=== PATIENT | female | born 1970 | race Caucasian/White ===

== ENCOUNTER 2023-02-26 06:06 | Day surgery (SDC) | payer BC, OTHER ==
[2023-02-22 12:20] LABS: BASOPHILS % (AUTO) 0.4 % (0-1); EOSINOPHILS # (AUTO) 0.1 X10'3 (0-0.9); EOSINOPHILS % (AUTO) 1.8 % (0-6); LYMPHOCYTES # (AUTO) 1.2 X10'3 (1.1-4.8); LYMPHOCYTES % (AUTO) 20.2 % (21-51); MEAN CORPUSCULAR HEMOGLOBIN 31.4 PG (27.0-31.0); MEAN CORPUSCULAR HGB CONC 33.9 g/dL (33.0-36.5); MEAN CORPUSCULAR VOLUME 92.8 FL (78-98); MEAN PLATELET VOLUME 7.8 FL (7.4-10.4); MONOCYTES # (AUTO) 0.5 X10'3 (0-0.9); MONOCYTES % (AUTO) 8.3 % (2-12); NEUTROPHILS # (AUTO) 4.2 X10'3 (1.8-7.7); NEUTROPHILS % (AUTO) 69.3 % (42-75); PRE OP HEMATOCRIT 44.5 % (35.0-45.0); PRE OP HEMOGLOBIN 15.1 g/dL (12.0-16.0); PRE OP PLATELET COUNT 313 X10'3 (140-440); RED BLOOD COUNT 4.79 X10'6 (4.20-5.60); RED CELL DISTRIBUTION WIDTH 13.2 % (11.5-14.5)
[2023-02-22 12:51] LABS: HCG SERUM QL NEGATIVE
[2023-02-22 13:04] LABS: ALBUMIN 3.8 G/DL (3.4-5.0); ALBUMIN/GLOBULIN RATIO 0.9 (1.1-1.5); ALKALINE PHOSPHATASE 73 IU/L (46-116); BLOOD UREA NITROGEN 19 MG/DL (7-18); BUN/CREATININE RATIO 23.8 (10.0-20.0); CALCIUM 9.4 MG/DL (8.5-10.1); CHLORIDE 104 MMOL/L (99-107); PRE OP ALT 35 U/L (30-65); PRE OP ANION GAP 11 (8-16); PRE OP AST 24 U/L (10-37); PRE OP BILIRUB, TOTAL 1.2 MG/DL (0.0-1.0); PRE OP GLUCOSE 111 MG/DL (70-104); PRE OP POTASSIUM 3.9 MMOL/L (3.4-5.1); PRE OP SODIUM 141 MMOL/L (135-145); TOTAL CARBON DIOXIDE 26.5 MMOL/L (24-32); TOTAL PROTEIN 7.9 G/DL (6.4-8.2); eGFR 74 ML/MIN
[2023-02-26] VITALS (10 sets, daily range): BP systolic 128–152; BP diastolic 79–91; PULSE 58–75; RESP 14–16; TEMP 98.7; O2SAT 96–100
[~2023-02-26] VITALS: Ht 160 cm; Wt 89.4 kg
[~2023-02-26 06:06] MED LIST: ASCO250T48 PO; CETI10CA PO; MAGN400C PO; POTA-280 PO; SYN0.088T PO; WOMENS ONE A DAY; cefazolin 2gm/D5W 100mL 100 ML IV ONE; famotidine 20mg tablet PO ONE; ringers solution, lacted 1,000 ML IV SCH
[2023-02-26] MEDS ORDERED: BUPIVAcaine/PF 2.5mg/ml (0.25%) 10ml vial ONE (06:42)
[2023-02-26] MEDS ORDERED: LIDOcaine 1% (10mg/ml)w/preservative inj. 20ml MDV ONE (07:14)
[2023-02-26] MEDS ORDERED: midazolam 1 mg/ML 2ml injection ONE (07:55)
[2023-02-26] MEDS ORDERED: fentaNYL/PF 50MCG/1 ML 2ML syringe ONE (07:55)
[2023-02-26] MEDS ORDERED: propofol inj 20 ML IV ONE (07:55)
[2023-02-26] MEDS ORDERED: ondansetron/PF 4mg/2ml inj IV PRN (08:00)
[2023-02-26] MEDS ORDERED: meperidine/PF 25mg/ml syringe IV PRN ×3 (08:00)
[2023-02-26] MEDS ORDERED: proCHLORperazine 10 MG/2 ml inj IV PRN (08:00)
[2023-02-26] MEDS ORDERED: ringers solution, lacted 1,000 ML IV SCH (08:00)
[2023-02-26] MEDS ORDERED: morphine 2 MG/ML inj. syringe IV PRN (08:00)
[2023-02-26] MEDS ORDERED: morphine 4 MG/ML inj SYRINge IV PRN (08:00)
[2023-02-26] MEDS ORDERED: sevoflurane 250ml liquid IH ONE (08:07)
[2023-02-26] MEDS ORDERED: dexamethasone sod phosphate 4mg/ml inj. ONE (08:49)
[2023-02-26] MEDS ORDERED: ondansetron/PF 4mg/2ml inj ONE (08:49)
--- NOTE | 2023-02-26 08:56 | NUR ---
Received from OR via [facility] accompanied by Anesthesiologist DR SOW and report given by Anesthesiolgist.VSS, MASK ON 8 LITERS AT 100%. BILAT DRESSINGS ON HANDS, IV 20G IN LAC. ICE Addendum: 02/26/23 at 0915 by Marlin Eubanks RN Amended: Links added.
--- NOTE | 2023-02-26 09:46 | NUR ---
PATIENT MEETS DISCHARGE CRITERIA. VSS. IV DC'D WITH NO ISSUES. EDUCATED OSIEL ON POST OP INSTRUCTIONS. PUT HER GLASSES ON HER AND WHEELED HER TO HER 'S CAR Addendum: 02/26/23 at 0958 by Marlin Eubanks RN Amended: Links added.
== END 2023-02-26 09:46 | disposition home or self-care (01) ==
LOC: PAS 06:06
PROVIDERS: ATTEND Orthopaedic Surgery Hand Surgery
DX: G56.03 Carpal tunnel syndrome, bilateral upper limbs (principal); E66.9 Obesity, unspecified; Z68.34 Body mass index [BMI] 34.0-34.9, adult; Z88.2 Allergy status to sulfonamides; Z79.899 Other long term (current) drug therapy; Z87.442 Personal history of urinary calculi; Z72.89 Other problems related to lifestyle; Z90.49 Acquired absence of other specified parts of digestive tract
CPT/HCPCS: 29848; 36415; 80053; 82948; 84703; 85025; 93005; J0690; J1100; J2250; J2405; J2704; J3010; J3490; J7030; J7120; Z7506; Z7512; A4215; A7000